=== PATIENT | male | born 1960 | race Caucasian/White ===

== ENCOUNTER 2020-01-16 20:08 | Emergency (ER) | payer OTHER ==
[~2020-01-16] VITALS: Ht 180.3 cm; Wt 90.7 kg
[~2020-01-16 20:08] MED LIST: ACTOPLUS MET PO; ACTOS 30 MG TAB30 M1; ALEVE220 M1; ALLOPURINOL 10100 M1 PO; ALLOPURINOL 30300 M2; CRESTOR20 MG PO; LISINOPRIL-HCT1 EACH PO; LISINOPRIL20 MG; PRILOSEC 20 MG20 MG PO; RELAFEN500 MG PO; SYNTHROID200 MCG PO
[2020-01-16] MEDS ORDERED: TRULICITY0.75 MG/0. SUBQ (20:14)
[2020-01-16 20:38] LABS: CALCIUM 8.7 mg/dL (8.5-10.1); CREATININE 0.9 mg/dL (0.6-1.3); POTASSIUM 4.2 mmol/L (3.5-5.1)
[2020-01-16 20:40] LABS: INR 1.1; PROTIME 10.9 Seconds (9.20-11.50)
[2020-01-16 20:49] LABS: ALBUMIN 4.1 g/dL (3.4-5.0); TOTAL BILIRUBIN 0.9 mg/dL (<0.1-1.0); TOTAL PROTEIN 7.5 g/dL (6.4-8.2)
[2020-01-16 20:57] LABS: ABSOLUTE BASOPHILS 0.1 thou/uL (0.0-0.2); ABSOLUTE EOSINOPHILS 0.1 thou/uL (0.0-0.7); ABSOLUTE LYMPHOCYTES 2.1 thou/uL (0.8-5.3); ABSOLUTE MONOCYTES 0.6 thou/uL (0.0-1.2); BASOPHILS 0.8 %; EOSINOPHILS 1.2 %; LYMPHOCYTES 26.6 %; MCH 30.4 pg (26.0-34.0); MCHC 35.6 g/dL (28.0-37.0); MCV 85.4 fL (80.0-100.0); MONOCYTES 7.5 %; MPV 8.7 fl. (7.2-11.1); NUCLEATED RBCS 0 /100WBC; PLATELET COUNT* 203 thou/uL (150-400); POLYS 63.9 %; RBC 4.92 mil/uL (4.50-6.00); RDW-CV 13.7 % (10.5-14.5); WBC 7.8 thou/uL (4.0-11.0)
[2020-01-16 23:15] VITALS: BP 113/76
--- NOTE | 2020-01-17 09:55 | EKG ---
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
== END 2020-01-16 23:17 | disposition home or self-care (01) ==
LOC: M.ERS 20:08
PROVIDERS: Emergency Medicine
DX: R07.89 Other chest pain (principal); I10 Essential (primary) hypertension; E78.00 Pure hypercholesterolemia, unspecified; E03.9 Hypothyroidism, unspecified; F17.210 Nicotine dependence, cigarettes, uncomplicated; Z90.89 Acquired absence of other organs